=== PATIENT | female | born 1970 | race Asian ===

== ENCOUNTER 2017-05-27 18:40 | Emergency (ER) | payer MEDICAID ==
[~2017-05-27] VITALS: Ht 160 cm; Wt 62.1 kg
[2017-05-27 21:57] VITALS: BP 136/77
== END 2017-05-27 21:57 | disposition home or self-care (01) ==
LOC: ED 18:40
DX: J06.9 Acute upper respiratory infection, unspecified (principal); Z88.0 Allergy status to penicillin
CPT/HCPCS: J2930

== ENCOUNTER 2019-08-23 17:01 | Emergency (ER) | payer OTHER ==
[~2019-08-23] VITALS: Ht 160 cm; Wt 63.3 kg
[2019-08-23 17:45] VITALS: Ht 160 cm; Wt 63.3 kg
[2019-08-23 20:55] LABS: UA SPECIFIC GRAVITY 1.025 (1.005-1.035); microscopic required? YES; urine erythrocyte 3+ (NEGATIVE)
[2019-08-23 21:03] LABS: BASOPHIL % 0.6 % (0-2); PLATELET COUNT 263 x10^3mcL (130-400); RED CELL DISTRIBUTION WIDTH 14.1 % (11.5-14.5)
[2019-08-23 21:21] LABS: CALCIUM 9.1 mg/dL (8.5-10.1); CARBON DIOXIDE 28.1 mmol/L (21-32); CHLORIDE SERUM 101 mmol/L (98-107); CREATININE SERUM 0.5 mg/dL (0.6-1.0); GFR1 > 60 mL/min; GLUCOSE SERUM 83 mg/dL (74-106); POTASSIUM SERUM 4.1 mmol/L (3.5-5.1); SODIUM SERUM 137 mmol/L (136-145)
[2019-08-23 21:44] VITALS: BP 132/81
== END 2019-08-23 21:44 | disposition home or self-care (01) ==
LOC: ED 17:01
PROVIDERS: Emergency Medicine
DX: M54.5 Low back pain (principal); R42 Dizziness and giddiness; N93.9 Abnormal uterine and vaginal bleeding, unspecified; Z88.0 Allergy status to penicillin; Z98.890 Other specified postprocedural states
CPT/HCPCS: 36415; J1885